=== PATIENT | female | born 1990 | race Caucasian/White ===

== ENCOUNTER 2016-05-12 16:18 | Emergency (ER) | payer OTHER ==
[~2016-05-12] VITALS: Ht 160 cm; Wt 85.0 kg
[2016-05-12 16:20] VITALS: BP 122/77
[2016-05-12] MEDS ORDERED: KETOROLAC 30MG/ML VIAL IV ONE (18:45)
== END 2016-05-12 21:23 | disposition home or self-care (01) ==
LOC: ER 16:19
DX: M54.9 Dorsalgia, unspecified (principal); M54.2 Cervicalgia; M25.561 Pain in right knee; M79.631 Pain in right forearm; V43.52XA Car driver injured in collision with other type car in traffic accident, initial encounter; W22.11XA Striking against or struck by driver side automobile airbag, initial encounter; Y93.89 Activity, other specified; Y92.488 Other paved roadways as the place of occurrence of the external cause; Y99.8 Other external cause status
CPT/HCPCS: 72040; 72100; 73060; 73090; 81025; 96374; 99284; J1885